=== PATIENT | male | born 1985 | race African-American/Black ===

== ENCOUNTER 2017-04-10 03:43 | Emergency (ER) | payer MEDICAID ==
[~2017-04-10] VITALS: Ht 170.2 cm; Wt 95.0 kg
[~2017-04-10 03:43] MED LIST: IBUP-232 PO; NORC5TAB PO
[2017-04-10 03:45] VITALS: BP 177/113; PULSE 95; RESP 15; TEMP 98.1; O2SAT 97
[2017-04-10] MEDS ORDERED: IBUPROFEN 800 MG TAB PO ONE (04:00)
--- NOTE | 2017-04-10 04:04 | PD ---
HPI Chief Complaint: Injury Time Seen by Provider: 04:03 Travel History International Travel<30 days: No Contact w/Intl Traveler<30days: No Traveled to known affect area: No History of Present Illness HPI Patient comes to the emergency department complaining of right distal forearm pain over the ulnar surface after falling out of bed and hitting a metal cabinet shortly prior to arrival. Patient denies doing anything for this prior to coming to the emergency department. He describes the pain as a throbbing/ burning pain that radiates proximally. Pain is worse certain movement. Denies anything making it better. Denies hitting his head or loss consciousness. Denies numbness or tingling. PFSH Past Medical History Medical History: Denies Significant Hx Diminished Hearing: No Past Surgical History Tonsillectomy: Yes Social History Alcohol Use: Yes (occasional) Tobacco Use: No Substance Use: No Allergies-Medications (Allergen,Severity, Reaction): Coded Allergies: Alto (Verified Allergy, Severe, Rash, 04/10/17) Reported Meds & Prescriptions Reported Meds & Active Scripts Active Lortab (Hydrocodone-Acetaminophen) 5-325 Mg Tab 1 Tab PO Q8HR PRN Ibuprofen 800 Mg Tab 800 Mg PO Q8H PRN [place] (Hydrocodone-Acetaminophen) 5-325 mg Tab 1 Tab PO Q6H PRN Ibuprofen 600 Mg Tab 600 Mg PO Q6H PRN Review of Systems Except as stated in HPI: all other systems reviewed are Neg Physical Exam Narrative GENERAL: Well-developed, overly nourished, in no acute distress, and non-ill appearing. SKIN: Focused skin assessment warm and dry. HEAD: Atraumatic. Normocephalic. EYES: Pupils equal and round. EOMI. No scleral icterus. No injection or drainage. ENT: No nasal bleeding or discharge. Mucous membranes pink and moist. NECK: Trachea midline. Supple. No nuclear rigidity. CARDIOVASCULAR: Radial pulses 2+, intact, equal bilaterally. Capillary refill less than 2 seconds. RESPIRATORY: No accessory muscle use. No respiratory distress. MUSCULOSKELETAL: No obvious deformities. No clubbing. No cyanosis. No edema. Full range of motion. Wrist: FROM and equal BL with passive flexion, extension, and pronation/supination. Capillary refill less than 2 seconds distal to injury and equal BL. FROM distal to injury and equal BL. Strength distal to injury equal BL. NV intact distal to injury. Flexion and extension of thumb equal BL. Equal strength and movement with abduction/adductions of BL fingers. [employer] strength equal BL. No tenderness to the anatomical snuffbox. Patient reports tenderness palpation over right distal forearm ulnar aspect. There is no crepitus or step-off. NEUROLOGICAL: Awake and alert. No obvious cranial nerve deficits. Motor grossly within normal limits. Normal speech. PSYCHIATRIC: Appropriate mood and affect; insight and judgment normal. Data Data Last Documented VS Vital Signs Date Time Temp Pulse Resp B/P Pulse Ox O2 Delivery O2 Flow Rate FiO2 04/10/17 03:58 18 04/10/17 03:45 98.1 95 177/113 97 Room Air Orders Ice/Cold Pack (04/10/17 03:56) Forearm (2vws) (04/10/17 ) Ibuprofen (Motrin) (04/10/17 04:00) Splint Or Brace Apply/Monitor (04/10/17 04:37) Acetamin-Hydrocod 325-5 Mg ([place] 5-325 (04/10/17 04:45) MDM Medical Decision Making Medical Screen Exam Complete: Yes Emergency Medical Condition: Yes Interpretation(s) Right forearm x-ray read by the radiologist shows: Nondisplaced distal ulnar shaft fracture. Differential Diagnosis Fracture, sprain, contusion, dislocation, other Narrative Course The patient sustained a fracture. The distal extremity appears neurovascularly intact, without evidence of neurovascular injury nor compartment syndrome. Tendon exam also was intact. The effected limb was splinted. The patient was discharged on pain medication along with fracture and splint care instructions and given warnings for vascular compromise. The patient is to follow up with Orthopedics. The patient agrees with plan. Patient in no obvious distress upon re-evaluation. All pertinent Radiology result(s) discussed with patient. Patient was asked if they wanted to speak to my attending, which the patient did not wish to do at this time. Any questions/ concerns in reference to patient diagnosis/condition discussed and clarified prior to patient's discharge. Reinforced sheer importance of close follow up with orthopedic. Instructed patient to return to ED immediately, if symptoms return/worsen. Pt showed understanding of above instructions. Further instructions and recommendations were detailed in discharge paperwork. Pt ambulated without difficulty out of ED at discharge. Diagnosis Primary Impression: Fracture of right ulna, shaft Qualified Code: S52.224A - Closed nondisplaced transverse fracture of shaft of right ulna, initial encounter Referrals: Alfred Del Rio MD 1 day Patient Instructions: Arm Fracture in Adults (DC), General Instructions, How to Use a Sling (GEN), Splint Care (ED) Departure Forms: Work Release Enter return to work date: Apr 13, 2017 Additional Instructions: Follow-up with orthopedic in 24-48 hrs. Take all medication as prescribed. Apply ice to affected area 20 minutes as needed for pain. Return to the emergency department if symptoms get worse. Med/Other Pt SpecificInfo: Prescription(s) given Scripts Hydrocodone-Acetaminophen (Lortab)5-325 Mg Tab1 Tab PO Q8HR PRN (PAIN GREATER THAN 7) #9 TAB Ref 0 Prov:Parul Heredia MD 04/10/17 Ibuprofen 800 Mg [id number] Mg PO Q8H PRN (PAIN SCALE 1 TO 10) #21 TAB Ref 0 Prov:Parul Heredia MD 04/10/17 Disposition: 01 DISCHARGE HOME Condition: Stable Bryce Thomas Apr 10, 2017 04:04
--- NOTE | 2017-04-10 04:42 | RADRPT ---
EXAM DATE/TIME: 04/10/2017 04:16 [facility] COMPARISON: No previous studies available for comparison. INDICATIONS : Patient fell today landing on right forearm. Complains of pain medially on right forearm. MEDICAL HISTORY : None. SURGICAL HISTORY : None. ENCOUNTER: Initial ACUITY: 1 day PAIN SCORE: 10/10 LOCATION: Right Forearm. FINDINGS: 2 views right forearm. Nondisplaced fracture of the distal ulna shaft. Radius is intact. Alignment wi thin normal limits. CONCLUSION: Nondisplaced distal ulnar shaft fracture. Carlos Hurst MD on April 10, 2017 at 4:37 Board Certified Radiologist. This report was verified electronically.
[2017-04-10] MEDS ORDERED: ACETAMINOPHEN/HYDROcodone 325 MG/5 MG TAB PO ONE (04:45)
[2017-04-10] MEDS ORDERED: HYDR-3533 PO (04:51)
[2017-04-10] MEDS ORDERED: IBUP800T23 PO (04:51)
[2017-04-14] MEDS ORDERED: LOSA25TA PO (14:22)
== END 2017-04-10 05:04 | disposition home or self-care (01) ==
LOC: NEPD 03:43
DX: S52.224A Nondisplaced transverse fracture of shaft of right ulna, initial encounter for closed fracture (principal); W06.XXXA Fall from bed, initial encounter
CPT/HCPCS: 29125; 73090

== ENCOUNTER 2018-02-01 12:02 | Emergency (ER) | payer MEDICAID ==
[~2018-02-01] VITALS: Ht 170.8 cm; Wt 105.0 kg
[~2018-02-01 12:02] MED LIST changes: +AMLO5TAB2 PO; +CYCL5TAB PO; -IBUP-232 PO; +LOSA50TA PO; -NORC5TAB PO
[2018-02-01 12:46] VITALS: BP 157/84; PULSE 75; RESP 16; TEMP 98.5; O2SAT 98
[2018-02-01] MEDS ORDERED: IBUPROFEN 800 MG TAB PO ONE (14:15)
--- NOTE | 2018-02-01 14:18 | PD ---
HPI Chief Complaint: Pain: Acute or Chronic Time Seen by Provider: 14:00 Travel History International Travel<30 days: No Contact w/Intl Traveler<30days: No Traveled to known affect area: No History of Present Illness HPI 32-year-old male presents to the ED for evaluation of 6/10 throbbing pain in the left knee. Gradual onset. Exacerbated by certain movements and weightbearing. Patient can identify no acute injury but states that the pain onset after he was playing with his children about a week ago. He denies numbness, tingling, weakness, limitations to range of motion of the extremity, previous injury to the area. Denies popping, clicking or giving way. No treatment attempted at home. PFSH Past Medical History Diminished Hearing: No Past Surgical History Tonsillectomy: Yes Social History Alcohol Use: Yes (occasional) Tobacco Use: No Substance Use: No Allergies-Medications (Allergen,Severity, Reaction): Coded Allergies: almond (Verified Allergy, Severe, Rash, 07/10/17) Reported Meds & Prescriptions Reported Meds & Active Scripts Active Ibuprofen 800 Mg Tab 800 Mg PO Q8H PRN Flexeril (Cyclobenzaprine HCl) 5 Mg Tab 5 Mg PO TID Amlodipine (Amlodipine Besylate) 5 Mg Tab 5 Mg PO DAILY Losartan (Losartan Potassium) 50 Mg Tab 50 Mg PO DAILY Review of Systems Except as stated in HPI: all other systems reviewed are Neg Physical Exam Narrative GENERAL: Well-nourished, well-developed -German male in no acute distress. SKIN: Focused skin assessment warm/dry. HEAD: Normocephalic. EYES: No scleral icterus. No injection or drainage. NECK: Supple, trachea midline. No JVD or lymphadenopathy. CARDIOVASCULAR: Regular rate and rhythm without murmurs, gallops, or rubs. RESPIRATORY: Breath sounds equal bilaterally. No accessory muscle use. GASTROINTESTINAL: Abdomen soft, non-tender, nondistended. MUSCULOSKELETAL: No cyanosis, or edema. Walks with a normal gait. FOCUSED LEFT LOWER EXTREMITY EXAM: 2+ DP pulse. No tenderness to palpation of the joint lines. Patient is able to flex beyond 90 and extend to 0. Negative varus/valgus stress testing. Neurovascularly intact distally. BACK: Nontender without obvious deformity. No CVA tenderness. Data Data Last Documented VS Vital Signs Date Time Temp Pulse Resp B/P (MAP) Pulse Ox O2 Delivery O2 Flow Rate FiO2 02/01/18 12:46 98.5 75 16 157/84 (108) 98 Orders Orders Knee, Complete (4vws) (02/01/18 14:05) Ice/Cold Pack (02/01/18 14:05) Ibuprofen (Motrin) (02/01/18 14:15) Reuben Bandage (02/01/18 14:50) Ed Discharge Order (02/01/18 14:50) [facility] Medical Decision Making Medical Screen Exam Complete: Yes Emergency Medical Condition: Yes Differential Diagnosis Osteoarthritis versus musculoskeletal pain versus internal derangement versus other Narrative Course 32-year-old male presents to the ED for evaluation of 6/10 throbbing pain in the left knee. Gradual onset. Exacerbated by certain movements and weightbearing. Patient can identify no acute injury but states that the pain onset after he was playing with his children about a week ago. He denies numbness, tingling, weakness, limitations to range of motion of the extremity, previous injury to the area. Denies popping, clicking or giving way. Vitals reviewed. Physical exam reveals no tenderness to palpation of the joint lines. No limitations to flexion and extension. Negative varus/valgus stress testing. Patient endorses tenderness in the lower quadriceps. X-ray reveals no acute bony injury per radiology read. Suspect musculoskeletal pain, possibly internal derangement. Patient's provided a short course of anti- inflammatory medications and an Reuben wrap. He is instructed to return to normal , gentle activities as tolerated, take the medication as prescribed, use RICE therapy, follow-up with the orthopedist if symptoms do not resolve. He indicated understanding of instructions. He is agreeable to care plan. He is stable and discharged home. Diagnosis Primary Impression: Left knee pain Qualified Codes: M25.562 - Pain in left knee Referrals: Orthopedist Additional Instructions: Rest, ice, elevate the extremity. Apply ice no longer than 10-15 minutes per hour a few times a day. 800 mg ibuprofen up to 3 times a day as needed for pain. Return to normal, gentle activity as tolerated. No running, jumping activities for the next few weeks. Follow up with orthopedist or your primary care provider. Return to the ED for any urgent or emergent medical condition. Med/Other Pt SpecificInfo: Prescription(s) given Scripts Ibuprofen (Ibuprofen) 800 Mg Tab 800 MG PO Q8H Y for Pain/Inflammation, #15 TAB 0 Refills Prov: Tino Neal MD 02/01/18 Disposition: 01 DISCHARGE HOME Condition: Stable Dora Carrillo February 01, 2018 14:18
[2018-02-01] MEDS ORDERED: IBUP1TAB7 PO (14:45)
--- NOTE | 2018-02-01 15:11 | RADRPT ---
EXAM DATE/TIME: 02/01/2018 14:32 [facility] COMPARISON: No previous studies available for comparison. INDICATIONS : Left knee pain. No prior trauma, was just playing with his kids. MEDICAL HISTORY : None. SURGICAL HISTORY : None. ENCOUNTER: Initial ACUITY: 1 week PAIN SCORE: 8/10 LOCATION: Left knee. FINDINGS: There is some posterior medial cortical irregularity and bony prominence involving the distal femoral metaphyseal region which needs followup. There is no evidence of fracture, dislocation or joint effu magaly. Mild arthritic changes present with tiny osteophytic spurs most prominently noted in the patell ofemoral compartment and medial compartment. CONCLUSION: No acute bony injury. Mild undulating bony prominence and cortical irregularity involving the posterior medial distal femor al metaphyseal region. Followup with outpatient knee MRI would be suggested. Morales Barry MD on February 01, 2018 at 15:05 Board Certified Radiologist. This report was verified electronically.
== END 2018-02-01 15:00 | disposition home or self-care (01) ==
LOC: NEPK 12:02
DX: M25.562 Pain in left knee (principal)
CPT/HCPCS: 73564; 99283